=== PATIENT | female | born 2000 | race Two or more races ===

== ENCOUNTER 2023-04-12 00:41 | Emergency (ER) | payer OTHER ==
[~2023-04-12] VITALS: Ht 170.2 cm; Wt 65.8 kg
== END 2023-04-12 02:28 | disposition home or self-care (01) ==
LOC: ER 00:41
DX: S60.511A Abrasion of right hand, initial encounter (principal); S80.812A Abrasion, left lower leg, initial encounter; W54.0XXA Bitten by dog, initial encounter; Y93.89 Activity, other specified; Y92.89 Other specified places as the place of occurrence of the external cause; Y99.8 Other external cause status